=== PATIENT | female | born 1970 | race Caucasian/White ===

== ENCOUNTER 2016-04-12 18:03 | Emergency (ER) | payer MEDICARE, MEDICAID ==
[2016-04-12 18:22] VITALS: BP 123/79
--- NOTE | 2016-04-12 19:05 | EDM.PDOC ---
ED HPI Trauma - General Chief Complaint: Upper Extremity Injury/Pain Stated Complaint: pain in left fourth finger Time Seen by Provider: 04/12/16 18:20 Source: Reports: Patient History Limitations: Reports: No limitations - History of Present Illness INITIAL COMMENTS - FREE TEXT/NARRATIVE: PT STATES SHE SLIPPED AND FELL THIS AFTERNOON AND LANDED ON RIGHT HAND. DENIES ANY OTHER INJURY OR LOC. Symptom Onset Date: 04/12/16 Occurred When: this afternoon Occurred Where: home Method of Injury: fall Severity: mild Pain/Injury Location: Reports: upper extremity, right Consciousness: Reports: no loss of consciousness Associated Symptoms: Reports: no other symptoms Allergies/ADRs: Allergies cephalexin [Cephalexin] Allergy (Verified 04/12/16 18:22) Diarrhea Sulfa (Sulfonamide Antibiotics) Allergy (Verified 04/12/16 18:22) Airway Tightness lamotrigine [From Lamictal] Adverse Reaction (Mild, Verified 04/12/16 18:22) Rash Home Medications: Ambulatory Orders Atenolol 25 mg PO BID 02/05/13 [Confirmed 04/12/16] DULoxetine [Cymbalta] 60 mg PO BID 02/05/13 [Confirmed 04/12/16] Dextroamphetamine [Dexedrine] 30 mg PO TID 02/05/13 [Confirmed 04/12/16] Minocycline [Minocin] 100 mg PO DAILY 02/05/13 [Confirmed 04/12/16] Omeprazole 40 mg PO BID 02/05/13 [Confirmed 04/12/16] Buprenorphine HCl [Belbuca] 150 mcg BC BID 11/14/15 [Confirmed 04/12/16] Celecoxib 200 mg PO DAILY 11/14/15 [Confirmed 04/12/16] Diazepam [Valium] 5 mg PO QID 11/14/15 [Confirmed 04/12/16] Ezetimibe [Zetia] 10 mg PO DAILY 11/14/15 [Confirmed 04/12/16] FLUoxetine [PROzac] 20 mg PO DAILY 11/14/15 [Confirmed 04/12/16] Fenofibrate 160 mg PO DAILY 11/14/15 [Confirmed 04/12/16] Furosemide [Furosemide] 40 mg PO DAILY 11/14/15 [Confirmed 04/12/16] Gabapentin [Gabapentin] 300 mg PO TID 11/14/15 [Confirmed 02/28/17] Gabapentin [Gabapentin] 600 mg PO TID 11/14/15 [Confirmed 04/12/16] Glycopyrrolate 2 mg PO TID 11/14/15 [Confirmed 04/12/16] Lurasidone HCl [Latuda] 80 mg PO DAILY 11/14/15 [Confirmed 04/12/16] Methylphenidate HCl [Metadate ER] 20 mg PO BID 11/14/15 [Confirmed 04/12/16] Nortriptyline HCl [Pamelor] 25 mg PO DAILY 11/14/15 [Confirmed 04/12/16] Potassium Chloride 20 meq PO DAILY 11/14/15 [Confirmed 04/12/16] Past Medical History HEENT History: Reports: Impaired vision Cardiovascular History: Reports: Arrhythmia, High cholesterol, Hypertension Gastrointestinal History: Reports: GERD, Irritable bowel syndrome Genitourinary History: Reports: None 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: Musculoskeletal History: Reports: Back pain, chronic, Fibromyalgia, Osteoarthritis, Other (see below) Other Musculoskeletal History: myofascial pain syndrome, 4 bulging discs in back , bone spurs in spine Neurological History: Reports: Migraines Psychiatric History: Reports: ADD, ADHD, Anxiety, Bipolar, Depression, OCD, Panic attack, Psych Hospitalization(s), Other (see below) Other Psychiatric History: borderline personality disorder Endocrine/Metabolic History: Reports: Obesity/BMI 30+, Osteoporosis Hematologic History: Reports: Iron deficiency Dermatologic History: Reports: Other (see below) Other Dermatologic History: melasma - Infectious Disease History Infectious Disease History: Reports: None - Past Surgical History HEENT Surgical History: Reports: Other (see below) Other HEENT Surgeries/Procedures: deviated septum repair Cardiovascular Surgical History: Reports: None GI Surgical History: Reports: Appendectomy Female Surgical History: Reports: section, Tubal ligation Endocrine Surgical History: Reports: None Neurological Surgical History: Reports: None Musculoskeletal Surgical History: Reports: Ganglion cyst Dermatological Surgical History: Reports: None Social & Family History - Tobacco Use Smoking Status *Q: Current Every Day Smoker Years of Tobacco use: 32 Packs/Tins Daily: 1 Used Tobacco, but Quit: No Second Hand Smoke Exposure: Yes - Caffeine Use Caffeine Use: Reports: Coffee, Energy drinks, Soda - Recreational Drug Use Recreational Drug Use: No Drug Use in Last 12 Months: No - Living Situation & Occupation Living situation: Reports: alone Occupation: disabled Review of Systems - Review of Systems Review Of Systems: ROS reveals no pertinent complaints other than HPI. Constitutional: Reports: no symptoms Eyes: Reports: no symptoms Ears: Reports: no symptoms Nose: Reports: no symptoms Mouth/Throat: Reports: no symptoms Respiratory: Reports: no symptoms Cardiovascular: Reports: no symptoms GI/Abdominal: Reports: No symptoms Genitourinary: Reports: no symptoms Musculoskeletal: Reports: hand pain (RIGHT) Skin: Reports: no symptoms Neurological: Reports: no symptoms Psychiatric: Reports: no symptoms Trauma Exam - Physical Exam Exam: See Below Exam Limited By: No limitations General Appearance: Reports: alert, WD/WN, no apparent distress Head: Reports: atraumatic, normocephalic Throat/Mouth: Reports: Normal inspection, Normal oropharynx, No airway compromise Neck: Reports: non-tender, full range of motion, normal inspection Respiratory Exam: Reports: no respiratory distress Back: Reports: full range of motion, normal inspection, non-tender Extremities: Reports: other (RIGHT HAND DORSAL ASPECT WITH MILD EDMEA AND ERYTHEMA AT 4TH MIP) Neurologic: Reports: normal mood/affect, oriented x 3 Skin: Reports: Normal color, Warm/dry ED TRAUMA EXTREMITY PROCEDURES - Splinting Right Upper Extremity Pre-procedure NV status: normal Post-procedure NV status: normal Splint material: fiberglass Splint design: gutter Applied & form fitted by: provider Provider post-splint application NV check: NV status normal, good position Complications: No Course - Vital Signs Last Recorded V/S: Last Vital Signs Temp 96.8 F 04/12/16 18:08 Pulse 99 04/12/16 18:08 Resp 18 04/12/16 18:08 BP 123/79 04/12/16 18:08 Pulse Ox 95 04/12/16 18:08 - Orders/Labs/Meds Orders: Active Orders 24 hr Category Date Time Status Hand Comp Min 3V Rt [CR] Stat Exams 04/12/16 18:28 Ordered Departure - Departure Time of Disposition: 19:05 Disposition: Home, Self-Care 01 Condition: good Clinical Impression: Fracture of hand Qualifiers: Encounter type: initial encounter Fracture type: closed Laterality: right Qualified Code(s): S62.91XA - Unspecified fracture of right wrist and hand, initial encounter for closed fracture Instructions: Cast or Splint Care, [id number], Metacarpal Fracture, Easy-to- Read Referrals: Marshall Sethi MD [Physician] - Forms: ED Department Discharge - My Orders Last 24 Hours: My Active Orders 04/12/16 18:28 Hand Comp Min 3V Rt [CR] Stat - Assessment/Plan Last 24 Hours: My Active Orders 04/12/16 18:28 Hand Comp Min 3V Rt [CR] Stat Assessment:: RIGHT 4TH METACARPAL FRACTURE Plan: SPINT CARE / F/U WITH ORTHO
== END 2016-04-12 19:05 | disposition home or self-care (01) ==
LOC: KA.ED 18:03
DX: S62.324A Displaced fracture of shaft of fourth metacarpal bone, right hand, initial encounter for closed fracture (principal); E78.00 Pure hypercholesterolemia, unspecified; I10 Essential (primary) hypertension; K21.9 Gastro-esophageal reflux disease without esophagitis; F17.210 Nicotine dependence, cigarettes, uncomplicated; Z88.1 Allergy status to other antibiotic agents; F41.9 Anxiety disorder, unspecified; F32.9 Major depressive disorder, single episode, unspecified; E66.9 Obesity, unspecified; Z90.49 Acquired absence of other specified parts of digestive tract; Z98.51 Tubal ligation status; Z88.2 Allergy status to sulfonamides; Z88.8 Allergy status to other drugs, medicaments and biological substances; Z79.899 Other long term (current) drug therapy; W01.0XXA Fall on same level from slipping, tripping and stumbling without subsequent striking against object, initial encounter; Y92.009 Unspecified place in unspecified non-institutional (private) residence as the place of occurrence of the external cause
CPT/HCPCS: 29125; 73130-RT; 99283

== ENCOUNTER 2016-07-23 22:01 | Emergency (ER) | payer MEDICARE, MEDICAID ==
[2016-07-23 23:22] VITALS: BP 126/65
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
[2016-07-23] MEDS ORDERED: Ketorolac 60 MG/2 ML SDV IM ONE (23:41)
== END 2016-07-24 00:20 | disposition home or self-care (01) ==
LOC: KA.ED 22:01
DX: S22.32XA Fracture of one rib, left side, initial encounter for closed fracture (principal); S92.354A Nondisplaced fracture of fifth metatarsal bone, right foot, initial encounter for closed fracture; S92.344A Nondisplaced fracture of fourth metatarsal bone, right foot, initial encounter for closed fracture; S00.83XA Contusion of other part of head, initial encounter; S20.211A Contusion of right front wall of thorax, initial encounter; Z88.2 Allergy status to sulfonamides; Z88.1 Allergy status to other antibiotic agents; Z79.899 Other long term (current) drug therapy; H54.7 Unspecified visual loss; E78.00 Pure hypercholesterolemia, unspecified; I10 Essential (primary) hypertension; K21.9 Gastro-esophageal reflux disease without esophagitis; E66.9 Obesity, unspecified; M19.90 Unspecified osteoarthritis, unspecified site; F31.9 Bipolar disorder, unspecified; F17.210 Nicotine dependence, cigarettes, uncomplicated; Y08.89XA Assault by other specified means, initial encounter
CPT/HCPCS: 70220; 71111; 72100; 73630; 96372; 99283; 99284; J1885

== ENCOUNTER 2017-03-02 19:56 | Emergency (ER) | payer MEDICARE, MEDICAID ==
[2017-03-02 20:17] VITALS: BP 159/92
[2017-03-02 20:33] LABS: ACETAMINOPHEN 6.6 ug/mL (10.0-30.0); CHLORIDE,CL 102 mmol/L (98-115); SODIUM,NA 141 mmol/L (136-145)
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
== END 2017-03-02 20:54 ==
LOC: KA.ED 19:56
DX: R45.851 Suicidal ideations (principal); F90.9 Attention-deficit hyperactivity disorder, unspecified type; F32.9 Major depressive disorder, single episode, unspecified; I10 Essential (primary) hypertension; E78.00 Pure hypercholesterolemia, unspecified; F17.210 Nicotine dependence, cigarettes, uncomplicated; Z79.899 Other long term (current) drug therapy; Z88.2 Allergy status to sulfonamides; Z88.1 Allergy status to other antibiotic agents; Z91.09 Other allergy status, other than to drugs and biological substances
CPT/HCPCS: 36415; 80053; 80305; 84703; 85025; 99285; G0480

== ENCOUNTER 2017-07-13 00:51 | Emergency (ER) | payer MEDICARE, MEDICAID ==
[2017-07-13 01:26] VITALS: BP 112/67
[2017-07-13] MEDS: Ketorolac 30 MG/ML SDV IM ONE (01:43)
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
[2017-07-13] MEDS: Ketorolac 60 MG/2 ML SDV IM ONE (01:53)
[2017-07-13] MEDS: Ketorolac 30 MG/ML SDV ONE (01:53)
== END 2017-07-13 01:50 | disposition home or self-care (01) ==
LOC: KA.ED 00:51
DX: G89.29 Other chronic pain (principal); M54.5 Low back pain; I10 Essential (primary) hypertension; E66.9 Obesity, unspecified; Z88.2 Allergy status to sulfonamides; Z88.8 Allergy status to other drugs, medicaments and biological substances; Z91.048 Other nonmedicinal substance allergy status; Z79.899 Other long term (current) drug therapy
CPT/HCPCS: 96372; 99283; J1885

== ENCOUNTER 2017-10-27 06:55 | Emergency (ER) | payer MEDICARE, MEDICAID ==
[2017-10-27] MEDS ORDERED: Ketorolac 60 MG/2 ML SDV IM ONE (07:07)
[2017-10-27 07:20] VITALS: BP 110/69
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
== END 2017-10-27 08:20 | disposition home or self-care (01) ==
LOC: KA.ED 06:55
DX: S92.322A Displaced fracture of second metatarsal bone, left foot, initial encounter for closed fracture (principal); S92.332A Displaced fracture of third metatarsal bone, left foot, initial encounter for closed fracture; S92.342A Displaced fracture of fourth metatarsal bone, left foot, initial encounter for closed fracture; S92.515A Nondisplaced fracture of proximal phalanx of left lesser toe(s), initial encounter for closed fracture; I10 Essential (primary) hypertension; E66.9 Obesity, unspecified; Z88.2 Allergy status to sulfonamides; Z88.8 Allergy status to other drugs, medicaments and biological substances; Z79.82 Long term (current) use of aspirin; Z79.899 Other long term (current) drug therapy; Z88.1 Allergy status to other antibiotic agents; Z91.09 Other allergy status, other than to drugs and biological substances; W19.XXXA Unspecified fall, initial encounter
CPT/HCPCS: 73610; 73630; 96372; 99283; J1885

== ENCOUNTER 2022-01-12 16:38 | Emergency (ER) | payer MEDICARE, MEDICAID ==
[2022-01-12 16:46] VITALS: BP 166/99; PULSE 68
[2022-01-12] MEDS ORDERED: LORazepam 0.5 MG Tab PO ONE ×2 (17:38→18:15)
[2022-01-12] MEDS ORDERED: LORazepam 0.5 MG Tab ONE (17:40)
== END 2022-01-12 18:30 | disposition home or self-care (01) ==
LOC: KA.ED 16:38
DX: F41.9 Anxiety disorder, unspecified (principal); F32.A Depression, unspecified; E78.00 Pure hypercholesterolemia, unspecified; I10 Essential (primary) hypertension; K21.9 Gastro-esophageal reflux disease without esophagitis; F17.210 Nicotine dependence, cigarettes, uncomplicated; Z91.048 Other nonmedicinal substance allergy status; Z88.1 Allergy status to other antibiotic agents; Z88.2 Allergy status to sulfonamides; Z88.8 Allergy status to other drugs, medicaments and biological substances; Z79.82 Long term (current) use of aspirin; Z79.899 Other long term (current) drug therapy
CPT/HCPCS: 99283; A9270

== ENCOUNTER 2022-01-13 13:08 | Emergency (ER) | payer MEDICARE, MEDICAID ==
[2022-01-13] MEDS ORDERED: LORazepam 0.5 MG Tab PO ONE (13:52)
[2022-01-13 14:16] LABS: ANION GAP 11.3 mmol/L (5-15)
[2022-01-13 14:35] LABS: BARBITURATE SCREEN,URINE NEGATIVE (NEGATIVE); BENZODIAZEPINES SCREEN,URINE POSITIVE (NEGATIVE); THC SCREEN,URINE 50 NG/ML POSITIVE (NEGATIVE)
[2022-01-13 14:36] LABS: TCA SCREEN,URINE NEGATIVE (NEGATIVE)
[2022-01-13 15:28] VITALS: BP 140/85; PULSE 76
== END 2022-01-13 15:43 ==
LOC: KA.ED 13:08
DX: S51.011A Laceration without foreign body of right elbow, initial encounter (principal); S51.012A Laceration without foreign body of left elbow, initial encounter; F41.9 Anxiety disorder, unspecified; F32.A Depression, unspecified; E78.00 Pure hypercholesterolemia, unspecified; I10 Essential (primary) hypertension; K21.9 Gastro-esophageal reflux disease without esophagitis; M19.90 Unspecified osteoarthritis, unspecified site; Z72.0 Tobacco use; Z88.8 Allergy status to other drugs, medicaments and biological substances; Z91.048 Other nonmedicinal substance allergy status; Z88.1 Allergy status to other antibiotic agents; Z88.2 Allergy status to sulfonamides; Z79.82 Long term (current) use of aspirin; Z79.899 Other long term (current) drug therapy; Z20.822 Contact with and (suspected) exposure to COVID-19; W26.8XXA Contact with other sharp object(s), not elsewhere classified, initial encounter
CPT/HCPCS: 36415; 80053; 80305-QW; 81001; 85025; 99285; A9270-GY; U0002

== ENCOUNTER 2023-05-19 22:47 | Emergency (ER) | payer MEDICARE ==
[2023-05-19] MEDS ORDERED: Sodium Chloride 0.9% 10 ML Syringe FLUSH PRN (23:11)
[2023-05-19] MEDS: Sodium Chloride 0.9% 1,000 ML IV ONE (23:16)
[2023-05-19 23:19] LABS: BASOPHILS ABSOLUTE AUTO 0.06 10^3/uL (0.00-0.10); BASOPHILS PERCENT AUTO 0.7 % (0.0-1.0); EOSINOPHILS ABSOLUTE AUTO 0.11 10^3/uL (0.10-0.30); EOSINOPHILS PERCENT AUTO 1.4 % (1.0-3.0); HEMATOCRIT 39.5 % (37.0-47.0); HEMOGLOBIN 13.6 g/dL (12.0-16.0); IMMATURE GRAN ABSOLUTE AUTO 0.01 10^3/uL (0.00-0.50); IMMATURE GRAN PERCENT AUTO 0.1 % (0.0-5.0); LYMPHOCYTES PERCENT AUTO 23.3 % (20.0-40.0); MEAN CORPUSCULAR HEMOGLOBIN 30.2 pg (27.0-31.0); MEAN CORPUSCULAR HGB CONC 34.4 g/dL (32.0-36.0); MEAN CORPUSCULAR VOLUME 87.8 fL (82.0-92.0); MEAN PLATELET VOLUME 9.9 fL (7.4-10.4); MONOCYTES ABSOLUTE AUTO 0.68 10^3/uL (0.10-0.80); MONOCYTES PERCENT AUTO 8.4 % (2.0-8.0); NEUTROPHILS ABSOLUTE AUTO 5.38 10^3/uL (2.50-7.00); NEUTROPHILS PERCENT AUTO 66.1 % (50.0-70.0); PLATELET COUNT,PLT 351 10^3/uL (150-400); RED CELL DISTRIBUTION WIDTH 12.8 % (11.5-14.5); WHITE BLOOD CELL COUNT,WBC 8.14 10^3/uL (5.00-10.00)
[2023-05-19] MEDS: Ondansetron 4 MG/2 ML SDV IVPUSH ONE (23:32)
[2023-05-19] MEDS: LORazepam 2 MG/ML SDV IVPUSH ONE (23:32)
[2023-05-19 23:36] LABS: APPEARANCE,URINE CLOUDY (CLEAR); BILIRUBIN,URINE NEGATIVE (NEGATIVE); COLOR,URINE YELLOW (YELLOW); GLUCOSE,URINE NEGATIVE (NEGATIVE); KETONES,URINE NEGATIVE (NEGATIVE); LEUKOCYTE ESTERASE,URINE NEGATIVE (NEGATIVE); NITRITE,URINE NEGATIVE (NEGATIVE); PROTEIN,URINE >=300 mg/dL (NEGATIVE)
[2023-05-19 23:37] LABS: ALBUMIN 2.33 g/dL (3.40-5.00); ANION GAP 12.1 mmol/L (5-15); BILIRUBIN TOTAL 0.2 mg/dL (0.2-1.0); CALCIUM 8.2 mg/dL (8.7-10.3); CARBON DIOXIDE,CO2 28.1 mmol/L (21.0-32.0); CREATININE 0.59 mg/dL (0.51-1.17); EST CRCL DRUG DOSING (CG) 99.23 mL/min; POTASSIUM,K 3.2 mmol/L (3.5-5.1); PROTEIN TOTAL,TP 6.5 g/dL (6.4-8.2)
[2023-05-19 23:48] LABS: OCCULT BLOOD,URINE TRACE-INTACT (NEGATIVE)
[2023-05-19 23:49] LABS: BACTERIA,URINE FEW /HPF (NONE TO FEW); EPITHELIAL CELLS,URINE RARE /LPF; RBC,URINE 0-5 /HPF (0-5); WBC,URINE 0-5 /HPF (0-5)
[2023-05-20] MEDS: LORazepam 0.5 MG Tab PO ONE (00:21)
[2023-05-20 00:31] VITALS: BP 132/90; PULSE 79
== END 2023-05-20 00:30 | disposition home or self-care (01) ==
LOC: KA.ED 22:47
DX: G47.00 Insomnia, unspecified (principal); K85.90 Acute pancreatitis without necrosis or infection, unspecified; I10 Essential (primary) hypertension; F41.9 Anxiety disorder, unspecified; E87.6 Hypokalemia; E78.00 Pure hypercholesterolemia, unspecified; K21.9 Gastro-esophageal reflux disease without esophagitis; Z88.1 Allergy status to other antibiotic agents; Z88.2 Allergy status to sulfonamides; Z88.8 Allergy status to other drugs, medicaments and biological substances; Z91.048 Other nonmedicinal substance allergy status
CPT/HCPCS: 36415; 71045; 80053; 81001; 83690; 84484; 85025; 93005; 96361; 96374; 96375; 99285-25; A9270-GY; J2060; J2405; J7030

== ENCOUNTER 2023-05-27 11:33 | Emergency (ER) | payer MEDICARE, MEDICAID ==
[2023-05-27 12:15] LABS: BASOPHILS ABSOLUTE AUTO 0.04 10^3/uL (0.00-0.10); BASOPHILS PERCENT AUTO 0.5 % (0.0-1.0); EOSINOPHILS ABSOLUTE AUTO 0.06 10^3/uL (0.10-0.30); EOSINOPHILS PERCENT AUTO 0.7 % (1.0-3.0); HEMATOCRIT 41.4 % (37.0-47.0); HEMOGLOBIN 14.2 g/dL (12.0-16.0); IMMATURE GRAN ABSOLUTE AUTO 0.01 10^3/uL (0.00-0.50); IMMATURE GRAN PERCENT AUTO 0.1 % (0.0-5.0); LYMPHOCYTES ABSOLUTE AUTO 1.32 10^3/uL (1.00-4.00); LYMPHOCYTES PERCENT AUTO 16.4 % (20.0-40.0); MEAN CORPUSCULAR HEMOGLOBIN 30.6 pg (27.0-31.0); MEAN CORPUSCULAR HGB CONC 34.3 g/dL (32.0-36.0); MEAN CORPUSCULAR VOLUME 89.2 fL (82.0-92.0); MEAN PLATELET VOLUME 9.5 fL (7.4-10.4); MONOCYTES ABSOLUTE AUTO 0.58 10^3/uL (0.10-0.80); MONOCYTES PERCENT AUTO 7.2 % (2.0-8.0); NEUTROPHILS ABSOLUTE AUTO 6.03 10^3/uL (2.50-7.00); NEUTROPHILS PERCENT AUTO 75.1 % (50.0-70.0); PLATELET COUNT,PLT 401 10^3/uL (150-400); RED BLOOD CELL COUNT 4.64 10^6/uL (3.80-5.50); RED CELL DISTRIBUTION WIDTH 13.2 % (11.5-14.5); WHITE BLOOD CELL COUNT,WBC 8.04 10^3/uL (5.00-10.00)
[2023-05-27 12:30] LABS: ALBUMIN 2.51 g/dL (3.40-5.00); ANION GAP 13.5 mmol/L (5-15); BILIRUBIN TOTAL 0.2 mg/dL (0.2-1.0); CALCIUM 8.6 mg/dL (8.7-10.3); CARBON DIOXIDE,CO2 27.6 mmol/L (21.0-32.0); CREATININE 0.62 mg/dL (0.51-1.17); EST CRCL DRUG DOSING (CG) 90.62 mL/min; POTASSIUM,K 4.1 mmol/L (3.5-5.1); PROTEIN TOTAL,TP 6.9 g/dL (6.4-8.2)
[2023-05-27] MEDS: Promethazine 25 MG/ML SDV IM ONE (13:06)
[2023-05-27] MEDS: Ketorolac 30 MG/ML SDV IM ONE (13:12)
[2023-05-27 13:32] VITALS: BP 135/78; PULSE 86
== END 2023-05-27 13:30 | disposition home or self-care (01) ==
LOC: KA.ED 11:33
DX: K85.90 Acute pancreatitis without necrosis or infection, unspecified (principal); G47.429 Narcolepsy in conditions classified elsewhere without cataplexy; G89.4 Chronic pain syndrome; F19.982 Other psychoactive substance use, unspecified with psychoactive substance-induced sleep disorder; F17.200 Nicotine dependence, unspecified, uncomplicated; E78.00 Pure hypercholesterolemia, unspecified; I10 Essential (primary) hypertension; K21.9 Gastro-esophageal reflux disease without esophagitis; Z79.899 Other long term (current) drug therapy; Z91.048 Other nonmedicinal substance allergy status; Z88.0 Allergy status to penicillin; Z88.1 Allergy status to other antibiotic agents; Z88.2 Allergy status to sulfonamides; Z88.8 Allergy status to other drugs, medicaments and biological substances
CPT/HCPCS: 36415; 80053; 82150; 83690; 85025; 96372; 99283; J1885; J2550